=== PATIENT | male | born 1940 | race Caucasian/White ===

== ENCOUNTER 2017-09-04 14:26 | Emergency (ER) | payer BC ==
[2017-09-04 16:47] LABS: Urine Bilirubin Negative (Negative); Urine Glucose Negative (Negative); Urine Nitrite Negative (Negative)
[2017-09-04] MEDS ORDERED: NS 0.9% 1000 ML* 1,000 ML IV SCH (17:45)
[2017-09-04 17:53] LABS: Hematocrit 43 % (42-52); Hemoglobin 14.4 g/dl (14.0-18.0); Mean Corpuscular HGB Conc 34 g/dl (31-36); Mean Corpuscular Hemoglobin 29 pg (27-31); Mean Corpuscular Volume 88 fL (80-94); Mean Platelet Volume 8 um3 (7.4-10.4); Red Blood Count 4.88 10^6/ul (4.0-5.4); Red Cell Distribution Width 13 % (10.5-15); White Blood Count 6.3 10^3/ul (3.5-10.8)
[2017-09-04 18:09] LABS: ALT 19 U/L (7-52); AST 23 U/L (13-39); Albumin 4.1 g/dL (3.2-5.2); Alkaline Phosphatase 71 U/L (34-104); Anion Gap 6 mmol/L (2-11); BUN/Creatinine Ratio 21.6 (8-20); Blood Urea Nitrogen 19 mg/dL (6-24); C Reactive Protein < 1.00 mg/L (< 5.00); CO2 Carbon Dioxide 29 mmol/L (22-32); Calcium 9.5 mg/dL (8.6-10.3); Chloride 104 mmol/L (101-111); EGFR African American 108.3 (>60); EGFR Non-African American 84.2 (>60); Globulin 3.2 g/dL (2-4); Glucose 101 mg/dL (70-100); Lipase 12 U/L (11.0-82.0); Magnesium 2.2 mg/dL (1.9-2.7); Potassium 4.3 mmol/L (3.5-5.0); Sodium 139 mmol/L (133-145); Total Protein 7.3 g/dL (6.4-8.9)
[2017-09-04 18:10] LABS: Troponin I 0.03 ng/mL (<0.04)
[2017-09-04 18:29] LABS: TSH (Thyroid Stimulating Horm) 0.89 mcIU/mL (0.34-5.60)
[2017-09-04 19:13] LABS: Acetaminophen < 15 mcg/mL; Alcohol < 10 mg/dL (<10); Salicylate < 2.50 mg/dL (<30)
--- NOTE | 2017-09-04 20:45 | RAD ---
INDICATION: Confusion. COMPARISON: There are no prior studies available for comparison. TECHNIQUE: Contiguous axial sections of the brain were obtained from the skull base to the vertex without contrast. FINDINGS: The ventricles, cisterns and sulci are enlarged consistent with diffuse atrophy. No significant focal abnormality or mass effect is seen. There is no evidence for hemorrhage. There is a soft tissue density partially calcified relatively large mass in the scalp adjacent to the posterior right parietal bone. Recommend clinical correlation. This measures approximately 3.8 x 2.8 cm in size. IMPRESSION: 1. NO EVIDENCE FOR ACUTE INTRACRANIAL ABNORMALITY. 2. PARTIALLY CALCIFIED MASS IN THE SCALP ADJACENT TO THE RIGHT PARIETAL BONE. RECOMMEND CLINICAL CORRELATION TO STABILITY.
[2017-09-05] MEDS ORDERED: Haloperidol TAB* 1 MG PO ONE (00:05)
[2017-09-05 00:34] VITALS: BP 144/76
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
== END 2017-09-05 00:32 | disposition home or self-care (01) ==
LOC: ED 14:26
DX: F03.91 Unspecified dementia, unspecified severity, with behavioral disturbance (principal); F06.8 Other specified mental disorders due to known physiological condition; R22.0 Localized swelling, mass and lump, head
CPT/HCPCS: 36415; 70450; 80053; 80320; 80329; 81003; 83605; 83690; 83735; 84443; 84484; 85025; 85610; 86140; 99284; A9270-GY; G0480